=== PATIENT | male | born 2000 | race Caucasian/White ===

== ENCOUNTER 2023-03-05 08:02 | Emergency (ER) | payer OTHER ==
[~2023-03-05] VITALS: Ht 175.3 cm; Wt 61.2 kg
[2023-03-05 08:08] VITALS: BP 136/96; PULSE 60; RESP 19; TEMP 97.6; O2SAT 98
--- NOTE | 2023-03-05 08:12 | NUR ---
Hakan rand in [facility] - 03/05/23 at 0825 by [id number] pt ambulatory to bed 09
--- NOTE | 2023-03-05 08:12 | NUR ---
pt ambulatory to bed 06
[2023-03-05 09:00] VITALS: O2SAT 98
--- NOTE | 2023-03-05 09:03 | NUR ---
MD GIORDANO AT BEDSIDE FOR EVALUATION
[2023-03-05] MEDS ORDERED: diphenhydrAMINE 50 MG/ML VIAL IVP ONE (09:10)
[2023-03-05] MEDS ORDERED: ONDANSETRON 4 MG/2 ML VIAL IVP ONE (09:10)
[2023-03-05] MEDS ORDERED: FAMOTIDINE 20 MG/2 ML VIAL IVP ONE (09:10)
[2023-03-05] MEDS ORDERED: NACL 0.9% 1,000 ML IV SCH (09:10)
[2023-03-05 09:20] LABS: BASOPHILS % (AUTO) 0.3 % (0.0-2.0); EOSINOPHILS # (AUTO) 0.1 K/uL (0-0.4); EOSINOPHILS % (AUTO) 0.8 % (0.0-4.0); HEMATOCRIT 47.8 % (36-52); LYMPHOCYTES # (AUTO) 1.9 K/uL (2.0-11.5); LYMPHOCYTES % (AUTO) 15.1 % (20.5-51.1); MEAN CORPUSCULAR HEMOGLOBIN 31 pg (27-31); MEAN CORPUSCULAR HGB CONC 36 g/dL (33-37); MEAN CORPUSCULAR VOLUME 87.8 fL (80-94); MONOCYTES # (AUTO) 0.7 K/uL (0.8-1.0); MONOCYTES % (AUTO) 5.6 % (1.7-9.3); NEUTROPHILS # (AUTO) 10.1 K/uL (1.8-7.7); NEUTROPHILS % (AUTO) 78.2 % (42.2-75.2); PLATELET COUNT (AUTO) 216 K/uL (140-450); RED BLOOD CELL COUNT(AUTO) 5.44 MIL/uL (4.20-6.10); RED CELL DISTRIBUTION WIDTH 12.6 % (11.6-13.7); WHITE BLOOD COUNT (AUTO) 12.9 K/uL (4.8-10.8)
--- NOTE | 2023-03-05 09:25 | NUR ---
pt encouraged to give urine sample. unable to give at this time. urine cup left at bedside
[2023-03-05 10:16] LABS: ALBUMIN 5.2 g/dL (3.4-5.0); ANION GAP 16.3 (8-16); CARBON DIOXIDE 27.2 mmol/L (21-32); CREATININE 0.9 mg/dL (0.6-1.3); POTASSIUM 3.5 mmol/L (3.5-5.1)
[2023-03-05 10:22] VITALS: BP 128/86; PULSE 66; RESP 19; TEMP 98; O2SAT 99
[2023-03-05 10:46] LABS: APPEARANCE,URINE CLEAR (CLEAR); BILIRUBIN,URINE NEGATIVE (NEGATIVE); BLOOD, URINE 2+ (NEGATIVE); COLOR,URINE YELLOW (YELLOW); LEUKOCYTE ESTERASE ,URINE NEGATIVE (NEGATIVE); NITRITE, URINE NEGATIVE (NEGATIVE); PH,URINE 7.5 (5.0-9.0); UGLUCOSE NEGATIVE (NEGATIVE)
[2023-03-05 10:52] LABS: RBC,URINE 80-100 /HPF (0-5)
[2023-03-05] MEDS ORDERED: ONDA-188 PO (11:09)
--- NOTE | 2023-03-05 11:16 | NUR ---
IV removed, catheter intact and site benign. Applied folded 4x4 gauze and tape to stop bleeding.
--- NOTE | 2023-03-05 11:21 | NUR ---
Patient discharged with v/s stable. Written and verbal after care instructions FOR CANNABINOID HYPEREMESIS SYNDROME given and explained. Patient alert, oriented and verbalized understanding of instructions. Ambulatory with steady gait. All questions addressed prior to discharge. ID band removed. Patient advised to follow up with PMD. Rx of ZOFRAN ODT given. Opportunity to ask questions provided and answered.
--- NOTE | 2023-03-05 11:27 | NUR ---
The patient's care was reviewed and supervised by JOSE WAKEFIELD RN.
== END 2023-03-05 11:27 | disposition home or self-care (01) ==
LOC: MED 08:02
DX: R11.2 Nausea with vomiting, unspecified (principal); R53.1 Weakness; R10.13 Epigastric pain; F12.90 Cannabis use, unspecified, uncomplicated
CPT/HCPCS: 36415; 80053; 81001; 82948; 83690; 85025; 93005; 96361; 96374; 96375; 99284; J1200; J2405; J3490; J7030